=== PATIENT | female | born 1985 | race Asian ===

== ENCOUNTER 2017-03-06 05:41 | Inpatient (IN) ==
[2017-03-06] MEDS ORDERED: MEPERIDINE 50 MG/1 ML VIAL IV PRN (06:40)
[2017-03-06] MEDS ORDERED: ONDANSETRON 4 MG/2 ML VIAL IV PRN (06:40)
[2017-03-06] MEDS ORDERED: TERBUTALINE 1 MG/1 ML VIAL SUBCUT PRN (06:40)
[2017-03-06] MEDS ORDERED: ACETAMINOPHEN 325 MG TABLET PO PRN ×2 (06:40→14:44)
[2017-03-06 06:48] LABS: Basophils % 0.2 % (0.0-0.8); Eosinophils # 0.3 10*3/uL (0.0-0.87); Eosinophils % 2.6 % (0.00-10.9); Hematocrit 34.1 VOL% (35.7-47.0); Hemoglobin 11.1 GM/DL (12.0-16.0); Immature Granulocytes % 0.7 %; Immature Granulocytes Absolute 0.07 #; Lymphocytes # 2.8 10*3/uL (1.4-4.0); Lymphocytes % 28.2 % (21.3-54.2); Mean Corpuscular HGB Conc 32.6 GM/DL (32-36); Mean Corpuscular Hemoglobin 27 PG (27-34); Mean Corpuscular Volume 83.6 FL (87-102); Mean Platelet Volume 9.4 FL (9.6-12.0); Monocytes # 1.1 10*3/uL (0.11-0.8); Monocytes % 10.9 % (1.7-12.7); Neutrophils # 5.6 10*3/uL (1.4-7.4); Neutrophils % 57.4 % (38.7-73.9); Platelet Count 227 T/CUMM (130-400); Red Blood Count 4.08 MC/CUMM (3.8-5.5); Red Cell Distribution Width 13.5 % (9.3-17.3); White Blood Count 9.8 T/CUMM (4-12)
[2017-03-06] MEDS ORDERED: LACTATED RINGERS 1,000 ML IV SCH (07:00)
[2017-03-06] MEDS ORDERED: OXYTOCIN/LR 20 UNIT/1,000 ML BAG IV SCH (07:00)
[2017-03-06] MEDS ORDERED: PROMETHAZINE 25 MG/1 ML VIAL IM ONE (08:27)
[2017-03-06] MEDS ORDERED: hydrOXYzine HCL 25 MG/1 ML VIAL IM PRN (08:27)
[2017-03-06] MEDS ORDERED: ePHEDrine 50 MG/ML AMP IV PRN (08:27)
[2017-03-06] MEDS ORDERED: CITRIC ACID/SODIUM CITRATE 30 ML UDCUP PO ONE (08:27)
[2017-03-06] MEDS ORDERED: fentaNYL 2 MCG/ROPIV 0.2% EPID 150 ML EPIDURAL SCH (08:27)
[2017-03-06] MEDS ORDERED: LACTATED RINGERS 1,000 ML IV ONE (08:27)
[2017-03-06] MEDS ORDERED: diphenhydrAMINE 50 MG/1 ML VIAL IV PRN ×2 (08:27)
[2017-03-06] MEDS ORDERED: FAMOTIDINE 20 MG/2 ML VIAL IV ONE (08:27)
--- NOTE | 2017-03-06 08:39 | OB/GYN History & Physical ---
History of Present Illness Chief complaint: In for elective induction of labor due to term . History of present illness: Ms. Post is a 32 year old female 4 para 3 living 3. Her LIBERTAD is 2016 for an estimated gestational age of 39 weeks. The patient presents for elective induction of labor due to term . The risk and benefits of been thoroughly discussed this patient significant other, plan of care has been discussed with Dr. Shrestha and all parties are in agreement plan. There is a language barrier, however the 's speaks fluent [place] and he is the interpreter and translator for this patient. The patient has had 3 previous vaginal deliveries and the largest weighed 7 pounds and 2 ounces and she reported no complications with any of her pregnancies. She has received her care through the [facility] and her course has been uneventful. labs: She is B+, rubella is immune, RPR is nonreactive, hepatitis B negative, HIV negative, and GBS culture is negative. Review of systems is negative with exception of above. Home Medications Medication Instructions Recorded Confirmed Type Vits #90/Iron Fum/FA 1 tablet PO DAILY 03/06/17 03/06/17 History [ Formula Tablet] Allergies Allergy/AdvReac Type Severity Reaction Status Date / Time No Known Allergies Allergy Verified 08/14/16 15:31 12 point system: reviewed and no additional remarkable complaints except as stated Medical,Surgical,& Family Hx - Medical History Medical History: noncontributory Psychological: No history of: Anxiety Disorders, ADHD Gastrointestinal: History of: GERD (since ) Reproductive: No history of: Ectopic , Complication - Surgical History Surgical History: noncontributory Reproductive Surgeries: Patient denies;: Section - Family History Family History: Denies;: Family Anesthesia Reaction, Family Cancer, Family Diabetes, Family Heart Disease, Family Hematology, Family Hypertension, Family Psychiatric Problems, Family Stroke, Additional Family History - Social History Smoking Status: Never smoker Frequency of Alcohol Use: None Type of Drug Use: None Marital Status: Lives With:: Spouse Functional capacity: independent ambulation 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 - Constitutional Vitals: Vital Signs Temp Pulse Resp BP Pulse Ox 03/06/17 08:00 98.2 F 78 20 111/71 03/06/17 05:51 97.3 F L 72 18 105/62 100 General appearance: no acute distress - Antepartum / Post Antepartum Exam Cervix - Dilatation: 4 cm Effacement: 70% Station: -2 Rupture: Intact Presentation: Vertex Heart Rate: 130s-140s [place]: Irregular uterine contractions Breast: bilateral: normal Abdomen obstetrics: Present: bowel sounds normal Vagina: Present: normal moisture Uterus exam: Present: enlarged - Head Head exam: Present: normal inspection - Neck Neck exam: Present: normal inspection - Respiratory Respiratory exam: Present: clear to auscultation bilaterally - Cardiovascular Cardiovascular exam: Present: regular rate and rhythm - GI/Abdominal GI/Abdominal exam: Present: normal bowel sounds - Extremities Exam Extremities exam: Present: normal inspection - Back Exam Back exam: Present: normal inspection - Neurological Exam Neurological exam: Present: alert, oriented X3 - Psychiatric Psychiatric exam: Present: normal affect, normal mood - Skin Skin exam: Present: normal color, warm Assessment and Plan (1) Term Status: Acute Assessment and plan: Admit IV fluids IV Pitocin per protocol Artificial rupture membranes when appropriate Internal monitors if indicated Epidural anesthesia if desired Anticipate Current Visit: Yes Results - Labs CBC & BMP: 03/06/17 06:30
[2017-03-06 11:21] LABS: Apearance,Urine CLEAR (Clear); Bilirubin,Urine Negative (Negative); Blood, Urine Negative (Negative); Glucose,Urine (UA) Negative (Negative); Ketones,Urine Negative (Negative); Nitrite,Urine Negative (Negative); Protein,Urine Negative; Urine Color Colorless (Yellow); Urine Specific Gravity 1.003 (1.001-1.035); Urine Urobilinogen < 2.0 EU/DL (0.2-1.0)
[2017-03-06 13:20] LABS: Cord Venous Blood HCO3 23.2 MMOL/L; Cord Venous Blood PCO2 47.2 MMHG; Cord Venous Blood PO2 27.2
--- NOTE | 2017-03-06 13:57 | Event Note ---
HPI: Ms. Post presented to the labor department for elective induction of labor due to term . The risk and benefit were thoroughly discussed with this patient and significant other, plan of care was discussed with Dr. Shrestha and all parties were in agreement plan. Stage I: The patient was admitted she received IV fluids and IV Pitocin per protocol. Artificial rupture of membranes was performed with clear fluid noted. The patient progressed in labor with a CAT 1 tracing. She received an epidural for pain control. The patient had an uneventful course of labor. Stage II: The patient was complete and complained of pressure and desire to push. She pushed for approximately 10 minutes after which time the 's head was delivered, the mouth and nose suctioned on the perineum. The remainder the infant was delivered at 1209, a viable female infant was noted. The infant was placed on the mom's abdomen for skin to skin bonding. Apgars were 9 at 1 minute and 9 at 5 minutes. weight was 6 pounds and 13 ounces. A cord pH was obtained and sent to the lab. Stage III: A spontaneous delivery of a Puckett placenta with three-vessel cord noted. The placenta was further examined. Grossly intact. The vagina cervix inspected with second degree perineal laceration noted which was repaired. Epidural anesthesia remain in effect on repair. Estimated blood loss was approximately 150 cc. At the time of dictation mother and baby both in stable condition.
[2017-03-06] MEDS ORDERED: LANOLIN 50% CREAM 0.3 OZ TUBE TOP PRN (14:44)
[2017-03-06] MEDS ORDERED: oxyCODONE/ACETAMINOPHEN 5-325 MG TABLET PO PRN (14:44)
[2017-03-06] MEDS ORDERED: BISACODYL 10 MG SUPP RECTAL PRN (14:44)
[2017-03-06] MEDS ORDERED: ACETAMINOPHEN/CODEINE 300-30 MG TABLET PO PRN (14:44)
[2017-03-06] MEDS ORDERED: DIPH/TET/ACEL PERT BOOSTER VACCINE 0.5 ML VIAL IM ONE (14:44)
[2017-03-06] MEDS ORDERED: HYDROCORTISONE 2.5% RECTAL CREAM 30 GM TUBE TOP PRN (14:44)
[2017-03-06] MEDS ORDERED: BENZOCAINE 20%/MENTHOL 0.5% SPRAY 56 GM CAN TOP PRN ×2 (14:44→14:46)
[2017-03-06] MEDS ORDERED: MEASLES/MUMPS/RUBELLA VACCINE 0.5 ML VIAL SUBCUT ONE (14:44)
[2017-03-06] MEDS ORDERED: WITCH HAZEL PADS 100/JAR TOP PRN (14:44)
[2017-03-06] MEDS ORDERED: RHO(D) IMMUNE GLOBULIN 300 MCG SYRINGE IM ONE (14:44)
[2017-03-06] MEDS: IBUPROFEN 800 MG TABLET PO PRN (14:50)
[2017-03-06] MEDS: oxyCODONE/ACETAMINOPHEN 5-325 MG TABLET PO PRN (14:53)
[2017-03-06] MEDS: DOCUSATE SODIUM 100 MG CAPSULE PO SCH (21:00)
[2017-03-07] MEDS: IBUPROFEN 800 MG TABLET PO PRN ×2 (02:25→18:03)
[2017-03-07] MEDS: oxyCODONE/ACETAMINOPHEN 5-325 MG TABLET PO PRN ×3 (02:26→23:45)
[2017-03-07 06:36] LABS: Basophils # 0.1 10*3/uL (0.0-0.2); Basophils % 0.5 % (0.0-0.8); Eosinophils # 0.3 10*3/uL (0.0-0.87); Eosinophils % 2.8 % (0.00-10.9); Hematocrit 34.5 VOL% (35.7-47.0); Immature Granulocytes % 0.5 %; Immature Granulocytes Absolute 0.06 #; Lymphocytes # 3.4 10*3/uL (1.4-4.0); Lymphocytes % 29.2 % (21.3-54.2); Mean Corpuscular HGB Conc 31.9 GM/DL (32-36); Mean Corpuscular Hemoglobin 27 PG (27-34); Mean Corpuscular Volume 84.4 FL (87-102); Mean Platelet Volume 9.3 FL (9.6-12.0); Monocytes # 0.9 10*3/uL (0.11-0.8); Monocytes % 8.1 % (1.7-12.7); Neutrophils # 6.8 10*3/uL (1.4-7.4); Neutrophils % 58.9 % (38.7-73.9); Platelet Count 198 T/CUMM (130-400); Red Blood Count 4.09 MC/CUMM (3.8-5.5); Red Cell Distribution Width 13.5 % (9.3-17.3); White Blood Count 11.5 T/CUMM (4-12)
--- NOTE | 2017-03-07 09:06 | OB/GYN Progress Note ---
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 - Constitutional Vitals: Vital Signs Temp Pulse Resp BP Pulse Ox 03/07/17 07:19 97.5 F L 82 20 105/69 97 03/07/17 05:00 18 03/07/17 04:30 97.9 F 80 18 100/59 97 03/07/17 01:00 18 03/07/17 00:15 97.5 F L 81 16 111/77 98 03/06/17 20:00 98.0 F 82 18 101/61 97 03/06/17 18:30 16 03/06/17 17:45 90 18 100/68 97 03/06/17 16:45 97.6 F 75 18 96/55 97 03/06/17 15:45 81 18 110/60 97 03/06/17 15:15 73 18 118/77 97 03/06/17 14:45 98 F 59 L 18 111/76 97 General appearance: no acute distress - Antepartum / Post Post Exam Breast: bilateral: normal Abdomen obstetrics: Present: bowel sounds normal Vagina: Present: normal moisture, discharge (Light lochia rubra) Uterus exam: Present: enlarged (Fundus firm midline) Anus/Rectum: Present: normal perianal skin - Head Head exam: Present: normal inspection - Respiratory Respiratory exam: Present: clear to auscultation bilaterally - Cardiovascular Cardiovascular exam: Present: regular rate and rhythm - GI/Abdominal GI/Abdominal exam: Present: normal bowel sounds, soft - Extremities Exam Extremities exam: Present: normal inspection - Neurological Exam Neurological exam: Present: alert, oriented X3 - Psychiatric Psychiatric exam: Present: normal affect, normal mood - Skin Skin exam: Present: normal color, warm Results - Labs CBC & BMP: 03/07/17 06:21
[2017-03-07] MEDS: DOCUSATE SODIUM 100 MG CAPSULE PO SCH ×2 (09:48→21:41)
--- NOTE | 2017-03-07 09:48 | Anesthesia Post-Op ---
Anesthesia Post OP - Post Ansesthetic Evaluation Patient seen in post op: Yes Resp: within normal limits CV: within normal limits Mental: within normal limits Temp: within normal limits [id number]: within normal limits Nausea and Vomiting: within normal limits Pain: within normal limits
[2017-03-07] MEDS ORDERED: ALUMINUM/MAGNES/SIMETH MAX STR 30 ML UDCUP PO PRN (23:37)
[2017-03-08 07:15] VITALS: BP 98/51
--- NOTE | 2017-03-08 09:30 | Discharge Summary ---
Hospital Course - Hospital Course Hospital Course: Ms. Post is a 32-year-old female who presented to labor department for elective induction of labor due to term . The patient subsequently delivered a viable with no complications. She is followed a normal post course and she has done well. Her bleeding is minimal with no odor. Her fundus is firm and midline. She is voiding without difficulty. She is bonding well with her infant. Her vital signs and lab values are stable. She will be discharged home prescriptions for pain and a follow-up appointment in our office. Diagnosis - Discharge Diagnosis (1) Term Status: Acute (2) Vaginal delivery Status: Acute Specialty Discharge - Follow Up or Referrals Follow up with: Wilma Shrestha MD [Physician] - 04/19/17 2:00 pm (Follow-up in 6 weeks) Discharge Plan - Discharge Data Disposition: Disch To Home/Self Care Condition at Discharge: Stable Discharge Diet: advance to your usual diet, regular diet Activity: resume usual activities as tolerated Hygiene: may shower Weight Bearing at Discharge: weight bear as tolerated Driving: no restrictions Contact your physician if you experience:: fever over 101, pain uncontrolled by pain medications - Discharge Medications New Acetamin/Codeine 300-30 Tab [Tylenol/Codeine #3] 2 tablet PO Q4H PRN #30 tablet PRN Reason: Pain Mild (1-3) Ibuprofen Tab [Motrin Tab] 800 mg PO Q6H PRN #30 tablet PRN Reason: Pain Moderate (4-7) No Action Vits #90/Iron Fum/FA [ Formula Tablet] 1 tablet PO DAILY Cetirizine HCl [Cetirizine Tab] 1 tablet PO DAILY - Follow Up or Referral Follow Up: Wilma Shrestha MD [Physician] - 04/19/17 2:00 pm (Follow-up in 6 weeks) - Forms/Instructions Instructions: Perineal Care (DC), Vaginal Delivery (DC), Bleeding (DC) Exam - Constitutional Vitals: Period Temp Pulse Resp BP Sys/Young Pulse Ox Last 24 Hr 97.4 F-98.9 F 66-80 18-20 97-112/51-61 96-98 General appearance: no acute distress - Head Head exam: Present: normal inspection - Respiratory Respiratory exam: Present: clear to auscultation bilaterally - Cardiovascular Cardiovascular exam: Present: regular rate and rhythm - GI/Abdominal GI/Abdominal exam: Present: normal bowel sounds, soft - Extremities Exam Extremities exam: Present: normal inspection - Back Exam Back exam: Present: normal inspection - Neurological Exam Neurological exam: Present: alert, oriented X3 - Psychiatric Psychiatric exam: Present: normal affect, normal mood - Skin Skin exam: Present: normal color, warm DS: Provider Date of admission: 03/06/17 06:40 Primary care physician: . No PCP Attending physician on admission: Wilma Shrestha MD Consults: 03/06/17 06:40 Consult to Anesthesiology [CONS] Routine Consulting Provider: Reason for Anesthesiology: Epidural Consult Comment: Epidural for pain managment 03/06/17 14:44 Consult to Patrol Conductor [CONS] Routine Consult Patrol Conductor: Breast Feeding Discharging clinician: Mahsa Dumont CNM Expected date of discharge: 03/08/17
[2017-03-08] MEDS: DOCUSATE SODIUM 100 MG CAPSULE PO SCH (09:44)
== END 2017-03-08 10:45 | disposition home or self-care (01) | DRG 560 ==
LOC: N.LDOUT 05:41 → N.LD 05:44 → N.OB 14:42
PROVIDERS: ADMIT Obstetrics & Gynecology; ATTEND Obstetrics & Gynecology

== ENCOUNTER 2021-10-17 10:19 | Inpatient (IN) ==
[2021-10-17] MEDS ORDERED: ONDANSETRON 4 MG/2 ML VIAL IV PRN (10:24)
[2021-10-17] MEDS ORDERED: LACTATED RINGERS 1,000 ML IV ONE (10:24)
[2021-10-17] MEDS ORDERED: hydrOXYzine HCL 25 MG/1 ML VIAL IM PRN (10:25)
[2021-10-17] MEDS ORDERED: FAMOTIDINE 20 MG/2 ML VIAL IV ONE (10:25)
[2021-10-17] MEDS ORDERED: PROMETHAZINE 25 MG/1 ML VIAL IM ONE (10:25)
[2021-10-17] MEDS ORDERED: diphenhydrAMINE 50 MG/1 ML VIAL IV PRN ×2 (10:25)
[2021-10-17] MEDS ORDERED: NALOXONE 0.4 MG/ML VIAL IV PRN (10:25)
[2021-10-17] MEDS ORDERED: ONDANSETRON 4 MG/2 ML VIAL IV ONE (10:25)
[2021-10-17] MEDS ORDERED: CITRIC ACID/SODIUM CITRATE 30 ML UDCUP PO ONE (10:25)
[2021-10-17] MEDS ORDERED: ePHEDrine 50 MG/ML VIAL IV PRN (10:25)
[2021-10-17] MEDS ORDERED: OXYTOCIN/LR 20 UNIT/1,000 ML BAG IV SCH (10:30)
[2021-10-17] MEDS ORDERED: fentaNYL 2 MCG/ROPIV 0.2% EPID 100 ML EPIDURAL SCH (10:30)
[2021-10-17 10:47] LABS: Basophils % 0.4 % (0.0-0.8); Eosinophils # 0.2 10*3/uL (0.0-0.87); Eosinophils % 2.5 % (0.00-10.9); Hematocrit 34.8 VOL% (35.7-47.0); Hemoglobin 10.3 GM/DL (12.0-16.0); Immature Granulocytes % 0.6 %; Immature Granulocytes Absolute 0.04 #; Lymphocytes # 1.4 10*3/uL (1.4-4.0); Lymphocytes % 20.6 % (21.3-54.2); Mean Corpuscular HGB Conc 29.6 GM/DL (32-36); Mean Corpuscular Volume 80.4 FL (87-102); Mean Platelet Volume 9.8 FL (9.6-12.0); Monocytes % 9.4 % (1.7-12.7); Neutrophils % 66.5 % (38.7-73.9); Platelet Count 185 T/CUMM (130-400); Red Blood Count 4.33 MC/CUMM (3.8-5.5); Red Cell Distribution Width 25.2 % (9.3-17.3); White Blood Count 6.8 T/CUMM (4-12)
[2021-10-17 11:06] LABS: Albumin 2.8 G/DL (3.4-5.0); Bilirubin,Total 0.6 MG/DL (0.20-1.00); Calcium 9.2 MG/DL (8.5-10.1); Osmolality,Calculated 273.7 MOS/KG (273-304); Potassium 3.8 MMOL/L (3.5-5.1); Total Protein 6.8 G/DL (6.4-8.2)
[2021-10-17 11:09] LABS: Hypochromia 1+; Microcytosis 1+
[2021-10-17 11:10] LABS: Anisocytosis 1+; Platelet Estimate Adequate; Polychromasia Slight
[2021-10-17] MEDS: LACTATED RINGERS 1,000 ML IV SCH ×2 (11:29→13:15)
[2021-10-17 12:30] LABS: Mucus,Urine Occasional /LPF (Occasional)
[2021-10-17 12:32] LABS: Bilirubin,Urine Negative (Negative); Blood, Urine Negative (Negative); Glucose,Urine (UA) Negative (Negative); Ketones,Urine 15 mg/dL (Negative); Nitrite,Urine Negative (Negative); Protein,Urine Negative; Urine Appearance Clear (Clear); Urine Color Yellow (Yellow)
[2021-10-17] MEDS ORDERED: TRANEXAMIC ACID 1,000 MG/10 ML VIAL ONE (13:41)
[2021-10-17] MEDS ORDERED: OXYTOCIN/LR 20 UNIT/1,000 ML BAG IV ONE ×2 (13:41→17:04)
[2021-10-17] MEDS ORDERED: SODIUM CHLORIDE 0.9% 0 ML IV ONE (13:41)
[2021-10-17] MEDS ORDERED: miSOPROStoL 200 MCG TABLET ONE (13:41)
[2021-10-17] MEDS ORDERED: CARBOPROST TROMETHAMINE 250 MCG/ML AMP IM ONE (13:42)
[2021-10-17] MEDS ORDERED: METHYLERGONOVINE 0.2 MG/1 ML AMP ONE (13:42)
[2021-10-17 16:47] LABS: Cord Arterial Blood HCO3 20.8 MMOL/L
[2021-10-17 16:49] LABS: Cord Venous Blood HCO3 22.9 MMOL/L; Cord Venous Blood PO2 31.2 MMHG
[2021-10-17] MEDS ORDERED: ACETAMINOPHEN 325 MG TABLET PO PRN (17:04)
[2021-10-17] MEDS ORDERED: BISACODYL 10 MG SUPP RECTAL PRN (17:04)
[2021-10-17] MEDS ORDERED: BENZOCAINE 20%/MENTHOL 0.5% SPRAY 56 GM CAN TOP PRN (17:04)
[2021-10-17] MEDS ORDERED: HYDROCORTISONE 2.5% RECTAL CREAM 30 GM TUBE TOP PRN (17:04)
[2021-10-17] MEDS ORDERED: DIPH/TET/ACEL PERT BOOSTER VACCINE 0.5 ML VIAL IM ONE (17:04)
[2021-10-17] MEDS ORDERED: oxyCODONE/ACETAMINOPHEN 5-325 MG TABLET PO PRN ×2 (17:04)
[2021-10-17] MEDS ORDERED: RHO(D) IMMUNE GLOBULIN 300 MCG SYRINGE IM ONE (17:04)
[2021-10-17] MEDS ORDERED: MEASLES/MUMPS/RUBELLA VACCINE 0.5 ML VIAL SUBCUT ONE (17:04)
[2021-10-17] MEDS ORDERED: WITCH HAZEL PADS 100/JAR TOP PRN (17:04)
[2021-10-17] MEDS ORDERED: LANOLIN 50% CREAM 0.3 OZ TUBE TOP PRN (17:04)
[2021-10-17] MEDS ORDERED: diphenhydrAMINE CAP 25 MG CAPSULE PO PRN (20:50)
[2021-10-17] MEDS: IBUPROFEN 800 MG TABLET PO PRN (20:58)
[2021-10-17] MEDS: DOCUSATE SODIUM 100 MG CAPSULE PO SCH (21:00)
[2021-10-18 05:12] LABS: Basophils # 0.1 10*3/uL (0.0-0.2); Basophils % 0.4 % (0.0-0.8); Eosinophils # 0.2 10*3/uL (0.0-0.87); Eosinophils % 1.5 % (0.00-10.9); Hematocrit 32.3 VOL% (35.7-47.0); Hemoglobin 9.5 GM/DL (12.0-16.0); Immature Granulocytes % 0.3 %; Immature Granulocytes Absolute 0.04 #; Lymphocytes % 16.6 % (21.3-54.2); Mean Corpuscular HGB Conc 29.4 GM/DL (32-36); Mean Corpuscular Volume 81.6 FL (87-102); Mean Platelet Volume 10.1 FL (9.6-12.0); Monocytes % 9.4 % (1.7-12.7); Neutrophils % 71.8 % (38.7-73.9); Platelet Count 158 T/CUMM (130-400); Red Blood Count 3.96 MC/CUMM (3.8-5.5); Red Cell Distribution Width 25.2 % (9.3-17.3); White Blood Count 11.8 T/CUMM (4-12)
[2021-10-18] MEDS: DOCUSATE SODIUM 100 MG CAPSULE PO SCH ×2 (09:14→20:06)
[2021-10-18] MEDS: IBUPROFEN 800 MG TABLET PO PRN ×2 (10:23→19:55)
[2021-10-18] MEDS ORDERED: MAGNESIUM HYDROXIDE SUSP 30 ML UDCUP PO PRN (19:58)
[2021-10-19 07:15] VITALS: BP 105/71
[2021-10-19] MEDS: DOCUSATE SODIUM 100 MG CAPSULE PO SCH (09:04)
[2021-10-19] MEDS ORDERED: DIPH/TET/ACEL PERT BOOSTER VACCINE 0.5 ML VIAL IM ONE (12:00)
== END 2021-10-19 11:40 | disposition home or self-care (01) | DRG 560 ==
LOC: N.LD 10:19 → N.OB 20:30
PROVIDERS: ADMIT Obstetrics & Gynecology; ATTEND Obstetrics & Gynecology